=== PATIENT | female | born 1935 | race Caucasian/White ===

== ENCOUNTER 2018-05-21 22:15 | Emergency (ER) | payer MEDICARE, OTHER ==
[~2018-05-21] VITALS: Ht 162.6 cm; Wt 81.6 kg
[2018-05-22 01:26] LABS: Urine Bacteria NONE SEEN /hpf (None Seen); Urine Blood Negative /uL (Negative); Urine Hyaline Cast FEW /lpf (0 - 2); Urine Mucus FEW (None Seen); Urine Specific Gravity 1.015 (1.001-1.035); Urine WBC 6 /hpf (0 - 5)
[2018-05-22 01:43] LABS: Alcohol, Urine < 3.0 mg/dL (0-5); Amphetamine Screen, Urine NEGATIVE (NEGATIVE); Barbiturate Scree,Urine NEGATIVE (NEGATIVE); Cannabinoid Screen, Urine POSITIVE (NEGATIVE); Cocaine Screen, Urine NEGATIVE (NEGATIVE); Opiate Scree,Urine NEGATIVE (NEGATIVE); Phencyclidine Screen, Urine NEGATIVE (NEGATIVE)
[2018-05-22 01:50] LABS: Benzodiazephine Screen, Urine NEGATIVE (NEGATIVE)
[2018-05-22] MEDS ORDERED: CIPROFLOXACIN HCL 500 MG TAB PO ONE (02:00)
[2018-05-22 04:30] VITALS: BP 141/65
== END 2018-05-22 04:45 | disposition home or self-care (01) ==
LOC: EDBD 22:15 → ER 22:15
DX: N39.0 Urinary tract infection, site not specified (principal); F12.929 Cannabis use, unspecified with intoxication, unspecified; I10 Essential (primary) hypertension
CPT/HCPCS: 70450; 80307; 81001; 93005